=== PATIENT | male | born 2000 | race Caucasian/White ===

== ENCOUNTER 2020-09-15 17:31 | Emergency (ER) | payer MEDICAID ==
[~2020-09-15] VITALS: Ht 170.2 cm; Wt 67.6 kg
[2020-09-15 17:45] VITALS: Ht 170.2 cm; Wt 67.6 kg
== END 2020-09-15 19:33 | disposition home or self-care (01) ==
LOC: ED 17:31
DX: S42.032A Displaced fracture of lateral end of left clavicle, initial encounter for closed fracture (principal); V28.0XXA Motorcycle driver injured in noncollision transport accident in nontraffic accident, initial encounter; Y93.I9 Activity, other involving external motion; Y92.488 Other paved roadways as the place of occurrence of the external cause; Y99.8 Other external cause status